=== PATIENT | female | born 1990 ===

== ENCOUNTER 2019-10-01 14:08 | Inpatient (IN) | payer OTHER ==
[2019-10-01] MEDS ORDERED: Lactated Ringers 1000 ML Bag* 1,000 ML IV ONE ×2 (15:30→16:46)
[2019-10-01] MEDS ORDERED: Buffered Lidocaine 1% SYRIN* 1 ML/SYRINGE INTRADERM ONE (15:30)
--- NOTE | 2019-10-01 15:38 | HP ---
General Information - Reason for Visit Contractions - General Information Maternal Age: 28 Grav: 3 Para: 1 SAB: 1 IEA: 0 Estimated Due Date: 09/25/19 Determined By: Early Ultrasound Gestational Age in Weeks/Days: 40 6/7 weeks Maternal Blood Type and Rh: O Positive - Results this Serology/RPR Result: Non-Reactive Rubella Result: Immune HBsAg Result: Negative HIV Result: Negative GBS Culture Result: Negative Past Medical History Delivery History: Hx Uncomplicated Vaginal Delivery Pertinent Past Medical History: Non-Contributory Pertinent Past Surgical History: None Pertinent Family History: Non-Contributory - Antepartal Records Antepartal Records: Reviewed, Complicated by: - ESL (good language skills), Varicella nonimmune Review of Systems Constitutional: Uncomfortable CV Complaint: No Respiratory: Shortness of Breath: No Gastrointestinal: No Nausea/Vomiting, Normal Bowel Movement Genitourinary: No Dysuria, No Leaking Fluid Musculoskeletal: Back Pain, Contractions Neurological: No Headache, No Visual Changes Movement: Normal Exam Allergies/Adverse Reactions: Allergies No Known Allergies Allergy (Verified 10/01/19 15:01) B/P: 109/72, P: 85, R: 18, T: 97.6 - Measurements Height: 5 ft 6.14 in Weight: 168 lb Weight in lbs: [id number] Body Mass Index (BMI): 27.0 Pre- Weight: 130 lb Weight Gained This : 38 lbs and 0 ozs - Exam Breast: Breast Exam Deferred CVA: No CVA Tenderness Extremities: No Edema Heart: Normal Rhythm/Heart Sounds HEENT: No Significant Findings Lungs: Clear Bilaterally Reflexes: DTR 2+ Thyroid: No Thyromegaly - Abdominal Exam Abdomen Exam: Non-Tender, Fundal Height Consistent with Dates - Ultrasound/Biophysical Profile Ultrasound Status: Not Done Targeted Exam Findings See L&D Outpatient Visit Provider Note for Findings: N/A Estimated Weight: 7 lb by javier's Cervical Exam: 4cm Effacement: 80% Station: -1 Presenting Part: Vertex Membrane Status: Intact Bleeding/Discharge: Bloody Show EFM Findings - External Monitor Findings Baseline Heart Rate: 135 External Monitor Findings: Accelerations Present, No Pattern of Variable or Late Decelerations, Variability Moderate, Baseline Stable Contractions: Regular, Moderate, 45-90 Seconds Contraction Frequency: 2-5 min Assessment/Plan - Assessment A: IUP at 40 6/7 weeks Category I FHR, no evidence of metabolic acidemia GBS negative Labor P: Desires epidural, will draw labs and start IV for bolus Plan to page anesthesiologist once labs return Reassess PRN Anticipate SVB - Plan Plan: Admit - Anticipate Vaginal Delivery - Date/Time of Admission Date of Admission: 10/01/19 Time of Admission: 15:30
[2019-10-01 16:13] LABS: ABS Eosinophils 0.1 10^3/ul (0-0.6); ABS Lymphocytes 1.3 10^3/ul (1.0-4.8); ABS Monocytes 0.6 10^3/ul (0-0.8); ABS Neutrophils 7.6 10^3/ul (1.5-7.7); Eosinophil % 0.6 %; Hematocrit 39 % (35-47); Hemoglobin 13.1 g/dL (12.0-16.0); Lymphocyte % 13.5 %; Mean Corpuscular HGB Conc 34 g/dL (31-36); Mean Corpuscular Hemoglobin 31 pg (27-31); Mean Corpuscular Volume 91 fL (80-97); Platelet Count 171 10^3/uL (150-450); Red Blood Count 4.29 10^6 /uL (3.70-4.87); Red Cell Distribution Width 14 % (10-15); White Blood Count 9.5 10^3/uL (3.5-10.8)
[2019-10-01] MEDS: Lactated Ringers 1000 ML Bag* 1,000 ML IV SCH ×2 (16:14→20:34)
[2019-10-01] MEDS ORDERED: OBEPIDURAL* 250 ML EPIDURAL ONE (16:43)
[2019-10-01] MEDS ORDERED: Famotidine TAB* 20 MG PO PRN (16:46)
[2019-10-01] MEDS ORDERED: EPHEDrine (Pressors)* 50 MG/ML VIAL IV PUSH PRN (16:46)
[2019-10-01] MEDS ORDERED: Phenylephrine 40 MCG/ML SYRINGE IV PUSH PRN (16:46)
[2019-10-01] MEDS ORDERED: Sodium Citrate/Citric Acid* 15 ML UDC PO PRN (16:46)
[2019-10-01 16:50] LABS: Urine Benzodiazepine Screen None Detected (None Detect); Urine Opiates Screen None Detected (None Detect)
[2019-10-01] MEDS ORDERED: OBEPIDURAL* 250 ML EPIDURAL SCH (17:00)
[2019-10-01] MEDS ORDERED: Lactated Ringers 1000 ML Bag* 1,000 ML IV SCH ×2 (17:00→23:45)
--- NOTE | 2019-10-01 18:27 | PN ---
Progress Note - Progress Note Date of Service: 10/01/19 Note: Called to room to assess baseline change in FHR. baseline 160-170 for one hour. Moderate variability, no decelerations. Junior reports minimal relief from CEI, has pushed bolus button three times. Anesthesiologist on unit and aware. Category II FHR. VE: 7/90/-1, bulging bag of water. Will consider controlled AROM
[2019-10-01] MEDS ORDERED: Oxytocin in LR* 20 UNITS/1,000 ML BAG IVPB ONE (19:53)
[2019-10-01] MEDS ORDERED: Oxytocin in LR* 20 UNITS/1,000 ML BAG IVPB SCH (23:45)
[2019-10-01] MEDS ORDERED: Witch Hazel PAD* JAR TOPICAL PRN (23:54)
[2019-10-01] MEDS ORDERED: Dibucaine 1% 28.35 GM TUBE PR PRN (23:54)
[2019-10-01] MEDS ORDERED: Glycerin ADULT SUPP PR PRN (23:54)
[2019-10-01] MEDS ORDERED: Misoprostol TAB* 200 MCG PR ONE (23:54)
[2019-10-01] MEDS ORDERED: Varicella Virus Vaccine Live* 0.5 ML VIAL SUBCUT ONE (23:54)
[2019-10-01] MEDS ORDERED: Acetaminophen TAB* 325 MG PO PRN (23:54)
--- NOTE | 2019-10-02 00:09 | PROCNOTE ---
[facility]: Delivery Note - Delivery A Date of : 10/01/19 Time of : 23:12 [place] Sex: Female Weight at : 7 lb 10.224 oz Score 1 Minute: 9 Score 5 Minutes: 9 Gestational Age in Weeks and Days at Delivery: 40 Weeks and 6 Days Delivery Method: Spontaneous Vaginal Labor: Spontaneous Did Patient attempt ?: N/A, No Previous Amniotic Fluid: Clear Estimated Blood Loss: 450 Anesthesia/Analgesia: CEI for Labor Anesthesia Comment: Dr. Paniagua Delivered By: Page Billings - Nursery Level of Nursery: Regular/Bedside - Perineum Perineal Injury: Right Mediolateral, 2nd Degree Perineal Injury Comment: repaired under lidocaine infiltration with 3-0 vicryl rapide Perineal Repair: By Delivering Practioner - Events Delivery Events of Note: Pitocin Only After Delivery, Supplemental O2 to Mother , Post- Bleeding - Meds Given - Additional Delivery Notes Additional Delivery Notes: in spontaneous labor received CEI per preference with moderate relief. Progressed to complete and complete. Began pushing at 1853 with poor maternal effort, unable to feel pressure of infant head. Pushing discontinued at 2003. Weiwei labored down until 2245, then pushing resumed with good descent. Slow, controlled delivery of head OA to MELVIN at 2312, compound right hand. Posterior shoulder followed with strong maternal effort, female infant delivered to maternal abdomen. HR>110, vigorous with spontaneous cry. Apgars 9 and 9. Cord doubly clamped and cut x 2 by timber buyer after pulsations ceased. IV pitocin initiated at 150 cc for active management of third stage. Intact placenta delivered via ange at 2319, noted to be bi-lobed. Brisk bleeding noted; pitocin increased to 250 cc and fundus firm with massage. Vagina and perineum inspected, second degree right mediolateral laceration noted , repair as above. Bleeding again noted during repair; misoprostol 800 mcg given [facility]. Mother and infant stable at time of note; infant to breastfeed. EBL = 450 cc
[2019-10-02] MEDS ORDERED: Lidocaine 1% INJ* 10 MG/ML 30 ML SDV ONE ×2 (00:53→02:08)
[2019-10-02] MEDS: Ibuprofen TAB* 600 MG PO SCH ×4 (01:09→18:33)
[2019-10-02] MEDS ORDERED: Misoprostol TAB* 200 MCG ONE (02:08)
[2019-10-02 06:07] LABS: ABS Basophils 0.1 10^3/ul (0-0.2); ABS Lymphocytes 1.1 10^3/ul (1.0-4.8); ABS Monocytes 0.9 10^3/ul (0-0.8); ABS Neutrophils 12.2 10^3/ul (1.5-7.7); Eosinophil % 0.1 %; Hematocrit 36 % (35-47); Hemoglobin 11.9 g/dL (12.0-16.0); Lymphocyte % 7.9 %; Mean Corpuscular HGB Conc 33 g/dL (31-36); Mean Corpuscular Hemoglobin 31 pg (27-31); Mean Corpuscular Volume 92 fL (80-97); Mean Platelet Volume 8.6 fL (7.4-10.4); Platelet Count 143 10^3/uL (150-450); Red Blood Count 3.88 10^6 /uL (3.70-4.87); Red Cell Distribution Width 14 % (10-15); White Blood Count 14.3 10^3/uL (3.5-10.8)
[2019-10-02] MEDS: Docusate CAP* 100 MG PO SCH ×3 (07:59→21:04)
[2019-10-02] MEDS ORDERED: Simethicone TAB* 80 MG TAB.CHEW PO SCH (08:30)
[2019-10-02] MEDS ORDERED: Ferrous Gluconate TAB* 324 MG TAB PO SCH (09:00)
[2019-10-03] MEDS: Ibuprofen TAB* 600 MG PO SCH ×2 (07:27→09:00)
[2019-10-03 07:48] VITALS: BP 100/60
--- NOTE | 2019-10-03 09:20 | PTEDU ---
Patient Name: ABY RILEY ABY RILEY selected video: Follow Me Mum: [facility] Successful to view on 10/03/2019 at 9:20:13 AM [id number]
[2019-10-03] MEDS: Docusate CAP* 100 MG PO SCH (09:25)
== END 2019-10-03 13:26 | disposition home or self-care (01) | DRG 560 ==
LOC: MCHOBOUT 14:08 → MCHOB 15:28
PROVIDERS: ADMIT Midwife; ATTEND Midwife
PROC: 10E0XZZ Delivery of Products of Conception, External Approach (ICD-10-PCS; principal; 2019-10-01)
PROC: 0KQM0ZZ Repair Perineum Muscle, Open Approach (ICD-10-PCS; 2019-10-01)
DX: O48.0 Post-term pregnancy (principal); O72.1 Other immediate postpartum hemorrhage; Z37.0 Single live birth; O70.1 Second degree perineal laceration during delivery; O76 Abnormality in fetal heart rate and rhythm complicating labor and delivery; O32.6XX0 Maternal care for compound presentation, not applicable or unspecified; Z3A.40 40 weeks gestation of pregnancy
CPT/HCPCS: 36415; 80307; 85025; 86850; 86900; 86901; A9270-GY; G0480